=== PATIENT | female | born 1990 | race Caucasian/White ===

== ENCOUNTER → 2025-05-02 | Day surgery (SDC) | payer OTHER ==
[2025-05-01 14:40] VITALS: BP 104/69
[~2025-05-02] VITALS: Ht 162.6 cm; Wt 53.5 kg
[~2025-05-02] MED LIST: BUPIVACAINE HCL 30 ML VIAL IJ ONE; BUPIVACAINE HCL/MPF 0.5% 30ML VIAL ONE; CEFAZOLIN SODIUM 1,000 MG VIAL ONE; CLINDAMYCIN PHOSPHATE 150 MG/ML (900mg) ONE; GENTAMICIN SULFATE 40 MG/ML VIAL ONE; NITROGLYCERIN 1 INCH OINT..GM. TD ONE; POVIDONE-IODINE 118 ML BOTT TOP ONE; POVIDONE-IODINE SCRUB 118 ML BOTT TOP ONE; SUGAMMADEX SODIUM 200 MG/2 ML VIAL IV ONE; TRANEXAMIC ACID 100MG/1ML (1000MG) AMPUL IV ONE; TRANEXAMIC ACID 100MG/1ML (1000MG) AMPUL ONE
== END | disposition home or self-care (01) ==
LOC: ADM 05-01 15:00 → CIR.AMB 06:00
PROVIDERS: ATTEND Surgery
DX: C50.411 Malignant neoplasm of upper-outer quadrant of right female breast (principal); Z90.13 Acquired absence of bilateral breasts and nipples; N65.1 Disproportion of reconstructed breast; Z15.01 Genetic susceptibility to malignant neoplasm of breast; R59.0 Localized enlarged lymph nodes; D48.62 Neoplasm of uncertain behavior of left breast; R92.1 Mammographic calcification found on diagnostic imaging of breast

== ENCOUNTER 2025-05-12 10:26 | Emergency (ER) | payer OTHER ==
[~2025-05-12] VITALS: Ht 162.6 cm; Wt 54.4 kg
[2025-05-12] MEDS ORDERED: PEPCID AC20 MG PO (11:03)
[2025-05-12 13:11] LABS: BASO % 0.3 % (0.1-1.2); EOS # 0.07 (0.04-0.54); EOS % 1.2 % (0.7-7.0); LYMPH # 1.18 (1.18-3.74); LYMPH % 20.2 % (19.3-53.1); MEAN PLATELET VOLUME 9.20 fl (9.4-12.4); MONO # 0.65 (0.24-0.82); MONO % 11.1 % (4.7-12.5); NEUT # 3.89 (1.56-6.13); NEUT % 66.9 % (34.0-71.1); RED CELL DISTRIBUTION WIDTH 13.9 % (11.6-14.4)
[2025-05-12 14:10] LABS: ALT/SGPT 27.0 U/L (12-78); AST/SGOT 18.0 U/L (15-37); BILIRUBIN TOTAL 0.34 mg/dL (0.3-1.2); BUN CREA RATIO 17.0 (7.0-25.0); CREATININE SERUM 0.54 mg/dL (0.55-1.02); GFR 127.74; GLOBULINA 2.7 G/DL (2.4-3.5); GLUCOSE FASTING 85.0 mg/dL (65-100); OSMOLALITY SERUM 281.0 MOSM/KG (275-295)
== END 2025-05-12 17:13 | disposition home or self-care (01) ==
LOC: ER 10:27
DX: R60.0 Localized edema (principal); M25.471 Effusion, right ankle; M25.472 Effusion, left ankle; C50.911 Malignant neoplasm of unspecified site of right female breast